=== PATIENT | female | born 1970 | race Caucasian/White ===

== ENCOUNTER 2017-07-24 11:31 | Outpatient (CLI) | payer BC ==
--- NOTE | 2017-07-25 18:09 | Mammography Report ---
DIGITAL BILATERAL SCREENING MAMMOGRAM: 07/24/2017 COMPARISON STUDY: Mammogram 12/07/2014. TECHNIQUE: Routine CC and MLO projections were obtained of the breasts. FINDINGS: Parenchymal tissue within both breasts is extremely dense, which lowers the sensitivity of mammography; however, there are no dominant masses, suspicious microcalcifications, or secondary sig ns of malignancy. In comparison to the previous studies, there are no significant changes. IMPRESSION: No mammographic evidence of malignancy. PLAN: Screening mammography is recommended annually. BIRADS category 1 - negative. STANDARD QUALIFYING STATEMENTS 1. This examination was reviewed with the aid of Computed-Aided Detection (CAD). 2. A negative or benign imaging report should not delay biopsy if clinically suspicious findings are present. Consider surgical consultation if warranted. More than 5% of cancers are not identified b y imaging. 3. Dense breasts may obscure an underlying neoplasm. JOB #: [id number] EXT JOB #:[id number]
== END 2017-07-24 11:32 | disposition home or self-care (01) ==
LOC: DI.S 11:31
PROVIDERS: ATTEND Physician Assistant
DX: Z12.31 Encounter for screening mammogram for malignant neoplasm of breast (principal)
CPT/HCPCS: 77067

== ENCOUNTER 2019-01-01 16:20 | Outpatient (CLI) | payer OTHER ==
--- NOTE | 2019-01-02 09:02 | Mammography Report ---
Reason: SCREENING MAMMO Procedure Date: 01/01/2019 Accession Number: [id number] / [id number] Procedure: JODY - Screening Mammo w/Jose CPT Code: FULL RESULT: EXAM: Screening Mammo w/Jose DATE: 01/01/2019 4:55 PM CLINICAL HISTORY: Routine screening. No reported personal or family history of breast cancer. TECHNIQUE: (B) - Bilateral Bilateral CC and MLO views were obtained. COMPARISON: 07/24/2017 through 03/29/2011 PARENCHYMAL PATTERN: (D) - The breasts demonstrate heterogeneously dense fibroglandular parenchyma bilaterally. FINDINGS: Bilateral breasts: There are multiple, similar appearing, round and oval, circumscribed margin, benign-appearing masses. There are no suspicious masses, calcifications, or areas of distortion. IMPRESSION: Benign findings. BI-RADS category 2 RECOMMENDATION: (ANNUAL) - Recommend routine annual screening mammography. BI-RADS CATEGORY: (2) - Benign Findings STANDARD QUALIFYING STATEMENTS: 1. This examination was not reviewed with the aid of Computer-Aided Detection (CAD). 2. A negative or benign imaging report should not preclude biopsy if clinically suspicious findings are present. 3. Dense breasts may obscure an underlying neoplasm. 4. This examination was reviewed with the aid of 3D breast imaging (tomosynthesis).
== END 2019-01-01 16:21 | disposition home or self-care (01) ==
LOC: DI 16:20
PROVIDERS: ATTEND Physician Assistant
DX: Z12.31 Encounter for screening mammogram for malignant neoplasm of breast (principal)
CPT/HCPCS: 77063; 77067

== ENCOUNTER 2020-03-30 10:37 | Outpatient (CLI) | payer OTHER ==
[2020-03-30 15:51] LABS: THYROID STIMULATING HORMONE 1.99 uIU/mL (0.34-5.60)
[2020-03-30 15:53] LABS: CHOL/HDL RATIO 3.3 (<4.4); CHOLESTEROL 213 mg/dL; FREE T4 (FREE THYROXINE) 0.86 ng/dL (0.58-1.64); HDL CHOLESTEROL 65 mg/dL; LDL CHOLESTEROL,CALCULATED 127 mg/dL; VLDL CHOLESTEROL 21 mg/dL
== END 2020-03-30 10:38 | disposition home or self-care (01) ==
LOC: LAB.S 10:37
PROVIDERS: ATTEND Nurse Practitioner Family
DX: E78.2 Mixed hyperlipidemia (principal); E03.9 Hypothyroidism, unspecified
CPT/HCPCS: 36415; 80061; 83721; 84439; 84443

== ENCOUNTER 2020-03-31 13:03 | Outpatient (CLI) | payer OTHER ==
--- NOTE | 2020-04-01 11:11 | Mammography Report ---
BILATERAL DIGITAL SCREENING MAMMOGRAM 3D/2D: 03/31/2020 CLINICAL: Routine screening. Comparison is made to exams dated: 01/28/2019 mammogram, 07/24/2017 mammogram, and 12/07/2014 mammogram - [facility]. The tissue of both breasts is heterogeneously dense. This may lower the sensitivity of mammography. There is a developing 6 mm irregular asymmetry with a spiculated margin in the left breast middle dep th central to the nipple seen on the craniocaudal view only. This is more prominent. No other significant masses, calcifications, or other findings are seen in either breast. IMPRESSION: INCOMPLETE: NEEDS ADDITIONAL IMAGING EVALUATION The developing 6 mm irregular asymmetry in the left breast is indeterminate. Additional views with p ossible ultrasound are recommended. This exam was interpreted at Station ID: [id number]. NOTE: For mammograms, a report in lay terms will be sent to the patient. Approximately 15% of breast malignancies will not be visualized mammographically. In the management of a palpable breast mass, a negative mammogram must not discourage biopsy of a clinically suspicious lesion. Electronically Signed By: May thomas/:04/01/2020 09:41:19 ACR BI-RADS Category 0: Incomplete 3340F PARENCHYMAL PATTERN: (D) - The breast(s) demonstrate(s) heterogeneously dense fibroglandular ameena barreto. BI-RADS CATEGORY: (0) - 0 Mammo and [place] [id number] Immediate follow-up LATERALITY: (B)
== END 2020-03-31 13:04 | disposition home or self-care (01) ==
LOC: DI 13:03
DX: Z12.31 Encounter for screening mammogram for malignant neoplasm of breast (principal)
CPT/HCPCS: 77063; 77067

== ENCOUNTER 2020-05-25 18:19 | Outpatient (CLI) | payer OTHER ==
--- NOTE | 2020-05-26 08:57 | Ultrasound Report ---
PROCEDURE: Pelvic w/Transvaginal INDICATIONS: DYSMENORRHEA TECHNIQUE: Real-time scanning was performed of the pelvic organs, with image documentation. Additional endovagi nal scanning was necessary due to incomplete visualization of the adnexal and endometrial structures by transabdominal scanning. COMPARISON: None. FINDINGS: Transabdominal scanning: Limited scanning through the kidneys shows no hydronephrosis. No pathologi c free abdominal or pelvic fluid. Endovaginal scanning: Uterus: Uterus is normal in size at 7.2 x 2.9 x 4.8 cm. The endometrium is obscured by IUD. Simple appearing uterine cyst measuring 6 mm. Ovaries: Right ovary measures 2.9 x 1.4 x 2.1 cm. There is a presumed dominant follicle measuring le ss than 1 cm. Left ovary measures 2.2 x 1.5 x 2.3 cm. IMPRESSION: Appropriately positioned IUD. Otherwise unremarkable examination as above. Of note, the endometrium i s obscured by the IUD. Reviewed by: Chester Vogel MD on 05/26/2020 8:56 AM PDT Approved by: Chester Vogel MD on 05/26/2020 8:56 AM PDT Station ID: [id number]
== END 2020-05-25 18:20 | disposition home or self-care (01) ==
LOC: DI 18:19
PROVIDERS: ATTEND Nurse Practitioner Family
DX: N94.6 Dysmenorrhea, unspecified (principal); Z97.5 Presence of (intrauterine) contraceptive device
CPT/HCPCS: 76830; 76856

== ENCOUNTER 2020-11-09 11:48 | Outpatient (CLI) | payer OTHER | END 2020-11-09 11:49 | disposition home or self-care (01) | LOC: COV 11:48 | PROVIDERS: ATTEND Family Medicine | DX: R07.0 Pain in throat (principal); R09.81 Nasal congestion; J34.89 Other specified disorders of nose and nasal sinuses; Z20.822 Contact with and (suspected) exposure to COVID-19 ==

== ENCOUNTER 2021-04-06 08:06 | Outpatient (CLI) | payer OTHER ==
[2021-04-06 15:37] LABS: THYROID STIMULATING HORMONE 2.45 uIU/mL (0.34-5.60)
[2021-04-06 15:42] LABS: ALBUMIN 3.9 g/dL (3.2-5.5); ALBUMIN/GLOBULIN RATIO 1.4 (1.0-2.2); ALKALINE PHOSPHATASE 27 IU/L (42-121); ALT ALANINE AMINOTRANSFERASE 17 IU/L (10-60); AST ASPARTATE AMINOTRANSFERASE 16 IU/L (10-42); BILIRUBIN,TOTAL 1.5 mg/dL (0.2-1.0); BUN - BLOOD UREA NITROGEN 8 mg/dL (6-20); CALCIUM 9.1 mg/dL (8.5-10.3); CARBON DIOXIDE - CO2 27 mmol/L (21-32); CHLORIDE 104 mmol/L (101-111); CHOL/HDL RATIO 2.9 (<4.4); CHOLESTEROL 194 mg/dL; CREATININE 0.7 mg/dL (0.4-1.0); GFR - MDRD 88 (>89); GLUCOSE 94 mg/dL (70-100); HDL CHOLESTEROL 66 mg/dL; LDL CHOLESTEROL,CALCULATED 108 mg/dL; LDL/HDL RATIO 1.6 (<4.4); POTASSIUM 3.9 mmol/L (3.5-5.0); SODIUM 138 mmol/L (135-145); TOTAL PROTEIN 6.7 g/dL (6.7-8.2); TRIGLYCERIDES 101 mg/dL; VLDL CHOLESTEROL 20 mg/dL
== END 2021-04-06 08:07 | disposition home or self-care (01) ==
LOC: LAB.S 08:06
PROVIDERS: ATTEND Nurse Practitioner Family
DX: E03.9 Hypothyroidism, unspecified (principal); E78.2 Mixed hyperlipidemia
CPT/HCPCS: 36415; 80053; 80061; 83721; 84443

== ENCOUNTER 2022-06-13 11:43 | Outpatient (CLI) | payer OTHER ==
--- NOTE | 2022-06-14 12:51 | Mammography Report ---
BILATERAL DIGITAL SCREENING MAMMOGRAM 3D/2D: 06/13/2022 CLINICAL: Routine screening. Comparison is made to exams dated: 04/29/2020 mammogram, 03/31/2020 mammogram, 01/28/2019 mammogram, mammogram, and 12/07/2014 mammogram - [facility]. Both breasts are heterogeneously dense, which may obscure small masses (category c / 51-75% glandula r tissue). No significant masses, calcifications, or other findings are seen in either breast. There has been no significant interval change. IMPRESSION: NEGATIVE There is no mammographic evidence of malignancy. A 1 year screening mammogram is recommended. Based on the Tyrer Cuzick model (a risk assessment model) the patients lifetime risk is 14.6% and he r 10 year risk is 3.8%. According to the ACR, ACS, and NCCN guidelines, an annual breast MRI exam vladimir ng with mammogram is recommended if the patients lifetime risk is 20% or greater. This exam was interpreted at Station ID: [id number]. NOTE: For mammograms, a report in lay terms will be sent to the patient. Approximately 15% of breast malignancies will not be visualized mammographically. In the management of a palpable breast mass, a negative mammogram must not discourage biopsy of a clinically suspicious lesion. Electronically Signed By: May thomas/jaquan:06/13/2022 16:59:11 ACR BI-RADS Category 1: Negative 3341F PARENCHYMAL PATTERN: (D) - The breast(s) demonstrate(s) heterogeneously dense fibroglandular ameena barreto. BI-RADS CATEGORY: (1) - 1 RECOMMENDATION: (ANNUAL) - Recommend routine annual screening mammography. [id number] 1 year screening LATERALITY: (B)
== END 2022-06-13 11:44 | disposition home or self-care (01) ==
LOC: DI 11:43
PROVIDERS: ATTEND Nurse Practitioner Family
DX: Z12.31 Encounter for screening mammogram for malignant neoplasm of breast (principal)